=== PATIENT | male | born 1995 | race Hispanic/Latino ===

== ENCOUNTER 2016-09-22 16:29 | Emergency (ER) | payer OTHER, MEDICAID ==
[~2016-09-22] VITALS: Ht 177.8 cm; Wt 122.7 kg
[~2016-09-22 16:29] MED LIST: ACET325T51 PO; IBUP-1827 PO; OXYC1TAB24 PO
[2016-09-22 16:43] VITALS: BP 134/95; PULSE 84; RESP 25; O2SAT 99
--- NOTE | 2016-09-22 16:56 | ED.REPORT ---
HPI-Abd Pain M Under 40 Date of Service Sep 22, 2016 ED Provider: Dr. Cerrato Pt is a 21 year old male presenting to the ED complaining of intermittent 10/10 LLQ abdominal pain onset 1 hour ago. Associated symptoms include vomiting. Denies diarrhea. Pt currently taking oxycodone for his recent ankle surgery. Pt reports that he drank 2 beers last night, and is a social drinker. Nursing Notes Stated Complaint: ABDOMINAL PAIN, TROUBLE BREATHING Chief Complaint: Male Abdominal Pain Nursing Notes Reviewed: Yes Allergies: Coded Allergies: No Known Allergies (Verified Allergy, Unknown, 10/20/15) Scheduled PRN Acetaminophen (Acetaminophen) 325 Mg Tablet 325 MG PO Q4H PRN PRN For Pain Ibuprofen (Ibuprofen) 600 Mg Tablet 600 MG PO TID PRN PRN For Pain Ondansetron ODT (Zofran ODT) 4 Mg Tablet 4 MG PO Q4H PRN PRN For Nausea oxyCODONE-Acetaminophen 5-325 mg (oxyCODONE-Acetaminophen 5-325 mg) 1 Each Tablet 1 TAB PO Q4H PRN PRN For Pain oxyCODONE-Acetaminophen 5-325 mg (oxyCODONE-Acetaminophen 5-325 mg) 1 Each Tablet 1 TAB PO Q6H PRN PRN For Pain General Time Seen by MD: 17:00 Chief Complaint Abdominal pain Hx Obtained From: Patient Arrived By: Walk-in Sudden in Onset?: Yes Onset Occurred: 1 - 4 hours ago Symptom Duration: Since onset Progression since Onset: Intermittent Location: : LLQ Quality: Painful Severity: Current: Severe Severity: Maximum: Pain level 10 out of 10 Recent Healthcare: No recent doctor visit, No recent hospitalization Similar Sx Previous: No Past Medical History Past Medical History None Past Surgical History Ankle surgery Smoking History Never Smoker Social History Alcohol Use: "Social" Other Social History: Good social support Ambulatory Status Independent Review of Systems GI: Reports: Abdominal pain, Nausea, Vomiting, Denies: Diarrhea Complete sys rev & neg: except as marked. Physical Exam Initial Vital Signs Vital Signs (First) Date Time Temp Pulse Resp B/P Pulse Ox O2 Delivery O2 Flow Rate FiO2 09/22/16 16:43 36.8 84 25 134/95 99 Room Air Initial VS: Reviewed Head / Eyes: Atraumatic, Normocephalic, PERRL ENT: Mucous membranes moist, Conjunctiva normal, No scleral icterus Neck: Supple, Non-tender, Full range of motion Extremities: Vascular intact, Neuro intact, No swelling, No tenderness Skin: Warm, Dry, No cyanosis Neurologic: Alert, Oriented, Nonfocal Psychiatric: Mood/affect normal, Behavior normal, Normal thought content General/Constitutional: Awake, Alert Distress / Hydration: Positive: Distress moderate Respiratory / Chest: No respiratory distress Abdomen: Atraumatic, No distention Tenderness/Guarding/Rebound: Positive: Tender LLQ... (Severe) Interpretation & Diagnostics Lab Results Interpretation Result Diagram: 09/22/16 1655 09/22/16 1655 Test 09/22/16 16:55 09/22/16 17:35 White Blood Count 8.4th/mm3 (3.8-10.1) Red Blood Count 4.82mil/mm3 (4.40-5.80) Hemoglobin 15.8g/dL (13.8-17.2) Hematocrit 42.6% (41.0-50.0) Mean Corpuscular Volume 88.4fL (81-100) Mean Corpuscular Hemoglobin 32.8pg (27.0-35.0) Mean Corpuscular Hemoglobin Concent 37.1% (32.0-37.0) Red Cell Distribution Width 11.9% (12.3-15.4) Platelet Count 261bil/L (150-400) Neutrophils (%) (Auto) 56.6% (40-74) Lymphocytes (%) (Auto) 31.9% (14-46) Monocytes (%) (Auto) 8.9% (4-12) Eosinophils (%) (Auto) 1.6% (0-5) Basophils (%) (Auto) 0.4% (0-3) Hold Purple Top Tube Received (Received) Hold Blue Top Tube Received (Received) Sodium Level 139mEq/L (134-144) Potassium Level 3.6mEq/L (3.5-5.2) Chloride Level 101mEq/L (97-108) Carbon Dioxide Level 22mmol/L (18-29) Blood Urea Nitrogen 10mg/dL (6-20) Creatinine 0.71mg/dL (0.76-1.27) Estimat Glomerular Filtration Rate 147mL/min (>59) Glucose Level 107mg/dL (60-99) Calcium Level 9.6mg/dL (8.5-10.1) Magnesium Level 2.2mg/dL (1.6-2.6) Total Bilirubin 0.3mg/dL (0.0-1.2) Aspartate Amino Transf (AST/SGOT) 41U/L (0-50) Alanine Aminotransferase (ALT/SGPT) 55U/L (0-44) Alkaline Phosphatase 93U/L (25-150) Total Protein 7.7g/dL (6.4-8.4) Albumin 4.7g/dL (3.4-5.0) Lipase 18U/L (13-60) Hold Red Top Tube Received (Received) Hold [place] Top Tube Received (Received) Hold Toney Top Tube Received (Received) Hold Urine Received (Received) CT Abd / Pelvis Interpretation IMPRESSION: 1. No evidence of urinary tract calcification, nor obstruction. 2. Normal appendix. 3. Small fat containing supraumbilical hernia. Dictated by: Sharon Rasmussen M.D. on 09/22/2016 at 17:54 Interpretation / Wet Read by: Interpret - Radiologist Re-Eval/Medical Decision Med Decision/Clinical Course No obvious pathology noted, symptoms have improved, of note he is not tender at the area where the CAT scan shows a probable fat-containing hernia. I believe that he is stable for discharge and should have close interval follow-up. Extensive return and follow-up precautions are given. He is prescribed Zofran and Percocet 5mg tabs #10 given Re-Evaluation/Progress #1: Time of Eval: 18:00 Patient Status: Condition improved Re-Evaluation/Progress Note: Discussed CT results and plan for discharge. Pt understands and agrees with plan. Re-Evaluation/Progress #2: Time of Eval: 18:15 Patient Status: Condition improved Re-Evaluation/Progress Note: Abdominal pain is improved. Now that pain is better he says this has happened to him several times before, without any obvious etiology. I told him that he is okay to go home and follow up soon. Counseled Regarding: Diagnosis, Lab results, Need for follow-up, When/why to return to ED Patient Discharge & Departure Primary Impression: Pain, abdominal, nonspecific Disposition: Home Discharge Condition All VS Reviewed: Yes Condition: Improved Patient Instructions: Acute Abdominal Pain (ED) Additional Instructions: No obvious life threatening cause for abdominal pain can be identified. Use percocet and zofran as needed for pain and nausea. return to the ED in 12-24hrs for repeat evaluation, sooner if worse. Referrals: Ramona Houston DO (PCP) [facility] Scribe Attestation Portions of this note were transcribed by Dinora Zavala. I, Dr. Cerrato personally performed the history, physical exam and medical decision-making; I reviewed and confirmed the accuracy of the information in the transcribed note. Signed by: Jeremias Buck, 09/22/2016 at 1824. copies to: Ramona Houston Timothy S DO Sep 22, 2016 16:56 DINORA ZAVALA Sep 22, 2016 17:04
[2016-09-22] MEDS ORDERED: 0.9% Sodium Chloride 1,000 ML IV ONE (17:04)
[2016-09-22] MEDS ORDERED: HYDROmorphone 0.5 mg/0.5 mL iSecure Syringe IVPUSH PRN (17:05)
[2016-09-22 17:14] LABS: BASOPHILS % (AUTO) 0.4 % (0-3)
[2016-09-22] MEDS: Ondansetron 2 mg/mL 2 mL Inj IVPUSH PRN ×2 (17:16→18:24)
[2016-09-22 17:22] LABS: EOSINOPHILS % (AUTO) 1.6 % (0-5); MONOCYTES % (AUTO) 8.9 % (4-12); Mean Corpuscular Hemoglobin 32.8 pg (27.0-35.0); Mean Corpuscular Volume 88.4 fL (81-100); NEUTROPHILS % (AUTO) 56.6 % (40-74); Platelet Count 261 bil/L (150-400)
[2016-09-22 17:31] LABS: Magnesium 2.2 mg/dL (1.6-2.6)
--- NOTE | 2016-09-22 17:57 | DRSVH ---
PROCEDURE: CT KUB ([id number]) INDICATIONS: left flank/ LUQ pain TECHNIQUE: Noncontrast 5 mm thick sections acquired from the diaphragms to the symphysis. 5 mm thick coronal an d sagittal reformats were then performed. For radiation dose reduction, the following was used: aut omated exposure control, adjustment of mA and/or kV according to patient size. COMPARISON: None. FINDINGS: Image quality: Excellent. Lung bases: Lung bases are clear. Heart size is normal. There is a small pericardial effusion. Urinary system: Both kidneys are normal in size. No kidney stones. No hydronephrosis or perinephri c fat stranding. Both ureters appear non-dilated throughout their expected courses. Bladder wall th ickness is normal; no calcified bladder stones. Other solid organs: Liver and spleen are normal in size. Gallbladder is contracted. Pancreas is no rmal in contours. No adrenal nodules. Peritoneum and bowel: Unenhanced bowel loops demonstrate normal wall thickness and caliber. No free fluid or air. Nodes and vessels: No retroperitoneal or mesenteric adenopathy by size criteria. Aorta and inferior vena cava are normal in caliber. Abdominal wall: There is a 14 mm diameter fat containing supraumbilical hernia. Pelvis: No free pelvic fluid. No inguinal hernias or adenopathy. Bones: No suspicious bony lesions. No vertebral body compression fractures. IMPRESSION: 1. No evidence of urinary tract calcification, nor obstruction. 2. Normal appendix. 3. Small fat containing supraumbilical hernia. Dictated by: Sharon Rasmussen M.D. on 09/22/2016 at 17:54 Approved by: Sharon Rasmussen M.D. on 09/22/2016 at 17:55
[2016-09-22] MEDS ORDERED: OXYC1TAB24 PO (18:22)
[2016-09-22] MEDS ORDERED: ONDA4TAB9 PO (18:22)
[2016-09-22 18:24] VITALS: BP 125/69; PULSE 70; RESP 17; O2SAT 100
[2016-11-04] MEDS ORDERED: OXYC1TAB24 PO (11:08)
[2016-11-04] MEDS ORDERED: FISH400C PO (11:08)
[2016-11-04] MEDS ORDERED: OMEP20CA11 PO (11:08)
[2016-11-04] MEDS ORDERED: MULT-1018 PO (11:08)
== END 2016-09-22 18:34 | disposition home or self-care (01) ==
LOC: SED 16:29
DX: R10.9 Unspecified abdominal pain (principal); R11.10 Vomiting, unspecified; Z98.890 Other specified postprocedural states; Z79.891 Long term (current) use of opiate analgesic
CPT/HCPCS: 36415; 74176; 80053; 83690; 83735; 85025; 96361; 96374; 96375; 96376; 99285; J1170; J1885; J2405; J7030

== ENCOUNTER 2016-11-07 10:37 | Day surgery (SDC) | payer OTHER ==
[~2016-11-07] VITALS: Ht 177.8 cm; Wt 120.9 kg
[2016-11-07] VITALS (11 sets, daily range): BP systolic 106–122; BP diastolic 53–74; PULSE 67–89; RESP 12–22; O2SAT 95–99
[~2016-11-07 10:37] MED LIST changes: -ACET325T51 PO; +CeFAZolin Inj 3 GM in IV Premix 1 EACH IV ONE; +FISH400C PO; -IBUP-1827 PO; +MULT-1018 PO; +OMEP20CA11 PO
[2016-11-07] MEDS ORDERED: Propofol 10,000 mCg/mL 20 mL Inj ONE ×2 (10:38)
[2016-11-07] MEDS ORDERED: Lidocaine PF 1% 30 mL Inj ONE ×2 (10:38)
[2016-11-07] MEDS ORDERED: Succinylcholine Chloride 20 mg/mL 5 mL Inj ONE ×2 (10:38)
[2016-11-07] MEDS ORDERED: MetoCLOpramide 5 mg/mL 2 mL Inj ONE ×2 (10:38)
[2016-11-07] MEDS ORDERED: fentaNYL-PF 50 mCg/mL 2 mL Inj ONE (10:38)
[2016-11-07] MEDS ORDERED: Ondansetron 2 mg/mL 2 mL Inj ONE ×2 (10:38)
[2016-11-07] MEDS ORDERED: Dexamethasone 4 mg/mL Inj ONE ×2 (10:38)
[2016-11-07] MEDS ORDERED: CeFAZolin Inj 3 Gm/ D5W 50 mL Bag IV ONE (11:20)
[2016-11-07] MEDS: Lactated Ringer's 1,000 ML IV SCH ×2 (12:32→17:28)
[2016-11-07] MEDS ORDERED: LORazepam 1 mg Tablet PO ONE (14:40)
--- NOTE | 2016-11-07 17:17 | PCM.HPANE ---
Patient Data Date of Service: November 07, 2016 Surgeon Admitting Provider: Attending Provider:Alfredito Goff MD Primary Care Physician:Edin Hernandez DO Other Provider:Keo Koroma Anesthesia Reason for Visit Umbilical Hernia Ht/WT & BMI Height (Feet): 5 Height (Inches): 10.00 Weight (Kilograms): 120.900 Body Mass Index 38.00 Allergies Coded Allergies: No Known Allergies (Verified Allergy, Unknown, 10/20/15) Past Anesthesia History Anesthesia History: Denies:: Abnormal Airway, Anesthesia Reactions, Difficult Intubation, Fam Anesthesia Reaction Diabetes History Hx Diabetes?: No MRSA MRSA: No Medications Hypertension Medication: No Home Meds Incl Beta Leandro: No Reported Medications oxyCODONE-Acetaminophen 5-325 mg 1 Each Tablet1 Tab PO Q4H PRN For Pain Ref 0 11/04/16 Omeprazole 20 Mg Capsule.dr20 Mg PO DAILY Ref 0 11/04/16 Fish Oil/Borage/Flax/Om3,6,9#1 (Vhyeobhv-Maih-Qtcbpj Oil Sftgl)400 Mg [id number] Mg PO DAILY 11/04/16 Multivitamin (Multi Vitamin Daily)1 Each Tablet1 Each PO DAILY 30 Days Ref 0 11/04/16 Discontinued Reported Medications oxyCODONE-Acetaminophen 5-325 mg 1 Each Tablet1 Tab PO Q4H PRN For Pain Ref 0 10/19/15 Acetaminophen 325 Mg [id number] Mg PO Q4H PRN For Pain Ref 0 10/19/15 Ibuprofen 600 Mg [id number] Mg PO TID PRN For Pain Ref 0 10/19/15 Discontinued Scripts Ondansetron ODT (Zofran ODT)4 Mg Tablet4 Mg PO Q4H PRN For Nausea #8 TABLET Prov:Abdi Cerrato DO 09/22/16 oxyCODONE-Acetaminophen 5-325 mg 1 Each Tablet1 Tab PO Q6H PRN For Pain #10 TABLET Ref 0 Prov:Abdi Cerrato DO 09/22/16 History History of ENT Problems?: No HEENT History: Denies:: Abnormal Airway Cataracts Difficult Intubation Dysphagia Hearing Problem Sinus Problem TMJ Denture Type: None Teeth Condition: Within Normal Limits Hx of Heart Problems?: No Cardiovascular History: Denies:: AICD Abdominal Aortic Aneurism Atrial Fibrillation Cardiac Surgery Chest Pain Congestive Heart Failure Edema Heart Murmur Hypertension Irregular Heartbeat Pacemaker Rheumatic Fever Hx of Respiratory Problem?: No Respiratory History: Denies:: Asthma COPD Emphysema Oxygen Administration Pneumonia Tuberculosis Use of C-PAP Machine Hx Neurologic Problems?: No Neurological History: Denies:: Alzheimer's Disease CVA Dementia Dizziness Headaches Multiple Sclerosis Parkinson's Disease Peripheral Neuropathy Seizures TIA Other Neurological Pertinent: no radiculopathy/neuropathy Hx of GI Problems?: Yes Gastrointestinal History: Positive for:: Gastroesphageal Reflux (Rx'd) Other GI Pertinent History: tonya umbilical hernia current admission problem Hx of Problems?: No Genitourinary History: Denies:: Kidney Stones Urinary Tract Infection Male Hx: Denies:: Prostate Problems Skin History: Denies:: History Skin Disorders? Pressure Ulcers Hx Musculoskeletal Problems?: Yes Musculoskeletal History: Positive for:: Back Injury (low back pain) Musculoskeletal Trauma (hx of left ankle fixation) Denies:: Joint Replacement Systemic Lupus Hx of Psycho/Social Problems?: No Hx Surgeries?: Yes (wisdom teeth, ORIF left ankle) Hx Any Other Health Problems?: Yes Other History: Denies:: Cancer Thyroid Disease History Blood Transfusions: Denies:: Blood Transfusions Hx Diabetes: No Hx Alcohol Use: Yes (socially)Hx Substance Use: No Smoking Status: Never Smoker Have You Smoked inLast 12 mo: No Stop/Bang Treated for Sleep Apnea?: No Do You Have a CPAP Machine?: No S-Snoring: Do You Snore Loudly: Yes T-Tired: feel tired, fatigued: No O-Obsered: Observed not breath: No P-Blood Pressure: treated: No B- Body Mass Index > 35 kg/m2: Yes A- Age over 50: No N- Neck Large Circumference: Yes G- Gender Male: Yes GABRIEL Risk Assessment: High Risk, =/>3 Yes GABRIEL Category 2: Yes Risk Assessment Category Category 1A: Patient has history of documented sleep apnea, and HAS NOT received any narcotic, sedative or anesthesia administration during this stay. Category 1B: Patient has history of documented sleep apnea, and HAS received any narcotic , sedative or anesthesia administration during this stay Category 2: Patient has SUSPECTED Obstructive Sleep Apnea, and HAS received any narcotic , sedative or anesthesia administration during this stay. Category 3: Patient has SUSPECTED Obstructive Sleep Apnea and HAS NOT received narcotic, sedative or anesthesia administration during this stay. Category 4: Outpatient in Procedural Areas with known sleep apnea or who screen positive for High Risk via the STOP/BANG questionnaire. Exam Exam Vital Signs Vital Signs Date Time Temp Pulse Resp B/P Pulse Ox O2 Delivery O2 Flow Rate FiO2 11/07/16 11:05 36.2 67 12 120/59 97 Room Air General Appearance: Alert, Oriented X3, Cooperative, No Acute Distress HEENT/AIRWAY: MP 3 Lungs: Clear to Auscultation, Normal Air Movement Heart: Exam Unremarkable, Regular Rate/Rhythm, Normal S1, Normal S2, No Murmurs /Rubs/Gallops Meds/Labs/Diagnostics Admission Meds Current Medications Lactated Ringer's (Lr) 1,000 ml @ 120 mls/hr Q8H20M IV Last administered on 12:32; Start 11/07/16 at 05:00; Stop 11/07/16 at 13:38; Status DC Lorazepam (Ativan) 1 mg ONCE ONCE PO Last administered on 11/07/16 14:42; Start 11/07/16 at 14:40; Stop 11/07/16 at 14:43; Status DC Plan Impression Patient chart reviewed, patient interviewed and anesthestic plan with risks, benefits, and alternatives discussed, and informed consent obtained. NPO per Anesth. Guidelines: Yes ASA Physical Status: ASA2 Mod Systemic Disease Anesthetic Plan: GA Bene/Risks/Altern/Consents: Yes HP Complete Prior to Induction: Yes Andres Beavers MD November 07, 2016 17:17
[2016-11-07] MEDS ORDERED: Bupivacaine-MPF 0.25%/EPI 30 mL Inj INFILTRATE ONE (17:54)
[2016-11-07] MEDS ORDERED: Phenylephrine 10,000 mCg/mL Inj IVPUSH PRN (17:55)
[2016-11-07] MEDS ORDERED: MetoCLOpramide 5 mg/mL 2 mL Inj IVPUSH PRN (17:55)
[2016-11-07] MEDS ORDERED: Lactated Ringer's 1,000 ML IV SCH (17:55)
[2016-11-07] MEDS ORDERED: EPHEDrine Sulfate 50 mg/mL Inj IVPUSH PRN (17:55)
[2016-11-07] MEDS ORDERED: Ondansetron 2 mg/mL 2 mL Inj IVPUSH PRN (17:55)
[2016-11-07] MEDS ORDERED: HYDROmorphone 1 mg/mL Inj IVPUSH PRN (17:55)
[2016-11-07] MEDS ORDERED: Dexamethasone 4 mg/mL Inj IVPUSH PRN (17:55)
[2016-11-07] MEDS: fentaNYL-PF 50 mCg/mL 2 mL Inj IVPUSH PRN ×2 (18:52→19:04)
[2016-11-07] MEDS: Lactated Ringer's 500 ML IV PRN ×2 (18:55→19:15)
[2016-11-07] MEDS ORDERED: oxyCODONE-Acetamin 5-325 mg Tablet PO PRN (19:20)
--- NOTE | 2016-11-08 08:25 | PCM.ANEP1 ---
Post Anesthesia PACU Phase 1 Assessment Date of Service: November 08, 2016 Vital Signs 36.1T 106/53BP 70HR RR16 SAO2 98% Anesthetic Administered: GA Level of Alertness: Awake, talking LOPEZ's with Equal Strength: Yes Pain: No Pain Scale Score: 0 Nausea or Vomiting: No CV Function and Hydration: Yes Airway Device: none in PACU Oxygen Delivery: Simple Mask Lungs: Clear to Auscultation, Normal Air Movement PACU Phase 2 Assessment Complications: No Patient Instructions Provided: Yes Andres Beavers MD November 08, 2016 08:25
--- NOTE | 2016-11-08 11:47 | OP ---
[address] [address] OPERATIVE REPORT PATIENT: CELSA YING : 1995 MR#: [id number] ADMIT: 11/07/2016 JOB ID: [id number] DATE OF SURGERY: 11/07/2016 ANESTHESIA: General. PREOPERATIVE DIAGNOSIS(ES): Ventral hernia. POSTOPERATIVE DIAGNOSIS(ES): Incarcerated ventral hernia (containing incarcerated fat). OPERATION: Open repair of incarcerated ventral hernia. SURGEON: Alfredito Goff MD. PLUGGER MAN: MANDA Madera (the virtual office assistant was required for the safe and timely completion of the case). COMPLICATIONS: None. ESTIMATED BLOOD LOSS: None. CONDITION: Satisfactory. SPECIMEN: None. FINDINGS: There was an approximately 2-3 mm fascial defect. There was incarcerated fat that had to be excised. The defect was repaired primarily. INDICATIONS/SIGNIFICANT HISTORY: The patient is a 21-year-old man has been experiencing some pain particularly with activity just above his umbilicus and he noted a small lump. I saw him in clinic. At that time, given his size, it is difficult to determine whether or not he truly had a hernia, although I did think I could feel a lump. Again, the option of further diagnostic evaluation with imaging versus just proceeding directly to the OR. He chose the latter. OPERATIVE TECHNIQUE: The patient was taken to the operating room and placed in supine position. General anesthesia administered and perioperative antibiotics given. The abdomen was prepped and draped in standard surgical fashion. A procedure pause was performed. I made a small vertical incision several cm above the umbilicus. Dissection was carried down through the skin and subcutaneous tissue. I encountered incarcerated fat, which I circumferentially dissected free. I worked this down to the fascia, where there was a small less than 5 mm defect. There was no way to reduce the hernia, so I just excised the incarcerated fat. I then repaired the hernia defect with a single horizontal stitch using 2-0 Prolene suture. The skin was then closed using 4-0 Monocryl. The entire procedure was well tolerated without complication. [facility]
== END 2016-11-07 23:59 | disposition home or self-care (01) ==
LOC: SAS 10:37
PROVIDERS: ATTEND General Practice
PROC: 0WQF0ZZ Repair Abdominal Wall, Open Approach (ICD-10-PCS; principal; 2016-11-07 12:30)
DX: K42.9 Umbilical hernia without obstruction or gangrene (principal); K43.6 Other and unspecified ventral hernia with obstruction, without gangrene
CPT/HCPCS: 49561; J0330; J0690; J1100; J2250; J2405; J2765; J3010; J7120